=== PATIENT | female | born 1965 | race Caucasian/White ===

== ENCOUNTER → 2017-07-27 | Outpatient (CLI) | payer BC ==
[2017-07-27 12:17] LABS: HEMATOCRIT 40.8 % (37-47); HEMOGLOBIN 13.6 g/dL (12.0-16.0); MEAN CELL VOLUME 87.4 fL (80-100); MEAN CORPUSCULAR HEMOGLOBIN 29.1 pg (25-34); MEAN CORPUSCULAR HGB CONC 33.3 g/dl (32-36); MEAN PLATELET VOLUME 9.7 fL (7.4-10.4); PLATELET COUNT 243 K/uL (130-400); RED CELL DISTRIBUTION WIDTH CV 13.1 % (11.5-14.5); RED CELL DISTRIBUTION WIDTH SD 41.4 fL (36.4-46.3); WHITE BLOOD COUNT 4.35 K/uL (4.8-10.8)
[2017-07-27 12:35] LABS: BLOOD UREA NITROGEN 18 mg/dl (7-18); CALCIUM 9.5 mg/dl (8.5-10.1); CARBON DIOXIDE 30 mmol/L (21-32); CREATININE 0.84 mg/dl (0.60-1.20); GLUCOSE 93 mg/dl (70-99); POTASSIUM 3.8 mmol/L (3.5-5.1); SODIUM 140 mmol/L (136-145)
== END | disposition home or self-care (01) ==
LOC: C.LAB1850 11:09
PROVIDERS: ATTEND Internal Medicine Cardiovascular Disease
DX: R00.2 Palpitations (principal); I47.1 Supraventricular tachycardia; I49.1 Atrial premature depolarization; R07.89 Other chest pain

== ENCOUNTER → 2017-07-31 | Outpatient (CLI) | payer BC ==
[~2017-07-31] MED LIST: OPTIRAY 320 IV PRN
--- NOTE | 2017-07-31 15:33 | DIAGNOSTIC IMAGING REPORT ---
CT ANGIOGRAPHY OF THE CHEST CLINICAL HISTORY: Family history of thoracic aortic aneurysm. Atypical chest pain. COMPARISON STUDY: No previous studies for comparison. TECHNIQUE: Helical axial images of the chest were obtained during arterial phase following intravenous injection of 119 cc Optiray 320 IV. Sagittal and coronal reconstructions were viewed as well as maximal intensity projections on an independent 3-D workstation. FINDINGS: The size of the heart is normal. There is no pericardial effusion. There is no thoracic aortic dissection. There is mild dilatation of the ascending aorta at the level the main pulmonary artery. The aorta measures 4 cm in caliber. The caliber at the level of the sinuses of V[place]alva is normal. Caliber of the aortic arch and descending thoracic aorta is also normal. No pulmonary emboli are identified. Central airways are patent. There is no consolidation or pneumothorax. There are no suspicious pulmonary nodules. Mild groundglass opacities reflect atelectasis. The bony thorax is unremarkable. The gallbladder is surgically absent which likely accounts for mild dilatation of the common bile duct. IMPRESSION: 1. Mild dilatation of the ascending aorta at the level of the main pulmonary artery, measuring 4 cm. Otherwise, normal caliber thoracic aorta. No thoracic aortic dissection. 2. No acute intrathoracic findings. Electronically signed by: Kevin Jones M.D. 07/31/2017 3:31 PM Dictated Date/Time: 07/31/2017 3:24 PM
== END | disposition home or self-care (01) ==
LOC: C.CTS 14:45
PROVIDERS: ATTEND Internal Medicine Cardiovascular Disease
DX: Z82.49 Family history of ischemic heart disease and other diseases of the circulatory system (principal)